=== PATIENT | female | born 1985 | race African-American/Black ===

== ENCOUNTER 2020-10-05 01:04 | Emergency (ER) | payer SELFPAY ==
[~2020-10-05] VITALS: Ht 180.3 cm; Wt 91.0 kg
[2020-10-05] MEDS ORDERED: MORPHINE SULFATE 4 MG/ML CPJ (NOT FOR IM USE) IV STA (01:49)
[2020-10-05] MEDS ORDERED: ACETAMINOPHEN 325MG TABLET PO STA (01:49)
[2020-10-05 02:58] LABS: BASOPHILS % 0.3 % (0.0-2.0); EOSINOPHILS % 1.5 % (0.0-5.0); HEMATOCRIT. 24.6 % (36.0-48.0); HEMOGLOBIN. 8.5 g/dL (12.0-16.0); LYMPHOCYTES % 14.3 % (20.0-50.0); MEAN CORPUSCULAR HEMOGLOBIN 30.3 pg (28.0-32.0); MEAN CORPUSCULAR VOLUME 87.8 fL (81.0-99.0); MEAN PLATELET VOLUME 8.4 fl (7.4-10.4); MONOCYTES % 7.8 % (2.0-8.0); NEUTROPHILS % 76.1 % (40.0-76.0); PLATELET 158 x1000/uL (130-400); RED CELL DISTRIBUTION WIDTH 12.1 % (11.6-14.6)
[2020-10-05 03:02] LABS: CHLORIDE 107 mEq/L (98-107)
[2020-10-05 03:05] LABS: HCG SCREEN NEGATIVE
[2020-10-05] MEDS ORDERED: LORAZEPAM 1MG TABLET PO ONE (03:30)
[2020-10-05 04:00] VITALS: BP 148/90
== END 2020-10-05 04:15 | disposition home or self-care (01) ==
LOC: ER 01:04
DX: G89.18 Other acute postprocedural pain (principal); R51.9 Headache, unspecified; R22.0 Localized swelling, mass and lump, head; Z48.89 Encounter for other specified surgical aftercare
CPT/HCPCS: 36415; 80048; 84703; 85025; 96374; 99283; J2270